=== PATIENT | female | born 1990 | race Caucasian/White ===

== ENCOUNTER → 2020-12-31 | Outpatient (CLI) | payer MEDICAID ==
[~2020-12-31] MED LIST: PNV1TABL76 MT
== END | disposition home or self-care (01) ==
LOC: EDBD → LAB 10:22
PROVIDERS: ATTEND Obstetrics & Gynecology
DX: Z01.812 Encounter for preprocedural laboratory examination (principal); Z20.822 Contact with and (suspected) exposure to COVID-19
CPT/HCPCS: 87426

== ENCOUNTER 2023-03-20 08:33 | Inpatient (IN) | payer MEDICAID ==
[~2023-03-20] VITALS: Ht 162.6 cm; Wt 72.6 kg
[~2023-03-20 08:33] MED LIST changes: +IBUP-2030 PO
[2023-03-20] MEDS ORDERED: METHYLERGONOVINE MALEATE 0.2 MG/ML IM PRN (10:15)
[2023-03-20] MEDS ORDERED: MISOPROSTOL 100MCG TABLET VG SCH (10:15)
[2023-03-20] MEDS ORDERED: NALOXONE HCL 0.4 MG/ML 1ML VIAL IM PRN (10:15)
[2023-03-20] MEDS ORDERED: LACTATED RINGERS 1,000 ML IV SCH (10:15)
[2023-03-20] MEDS ORDERED: OXYTOCIN 30 UNITS/500ML NS PMX 500 ML IV SCH (10:15)
[2023-03-20] MEDS ORDERED: CARBOPROST TROMETHAMINE 250 MCG/ML AMPUL IM PRN (10:15)
[2023-03-20 10:54] LABS: BASOPHILS % 0.1 % (0.0-2.0); HEMATOCRIT. 31.9 % (36.0-48.0); HEMOGLOBIN. 10.8 g/dL (12.0-16.0); LYMPHOCYTES % 20.1 % (20.0-50.0); MEAN CORPUSCULAR HEMOGLOBIN 29.7 pg (28.0-32.0); MEAN CORPUSCULAR VOLUME 87.5 fL (81.0-99.0); MEAN PLATELET VOLUME 8.5 fl (7.4-10.4); MONOCYTES % 6.3 % (2.0-8.0); NEUTROPHILS % 72.5 % (40.0-76.0); PLATELET 125 x1000/uL (130-400); RED BLOOD CELL COUNT 3.65 mill/uL (4.2-5.4); RED CELL DISTRIBUTION WIDTH 13.5 % (11.6-14.6)
[2023-03-20 11:06] LABS: INR 0.9; PARTIAL THROMBOPLASTIN TIME 27.3 sec (23.4-31.0); PROTHROMBIN TIME 9.9 sec (9.6-11.0)
[2023-03-20 11:07] LABS: CLARITY URINE CLEAR (CLEAR); COLOR URINE YELLOW (YELLOW); KETONES URINE NEGATIVE (NEGATIVE); LEUKOCYTE ESTERASE URINE NEGATIVE (NEGATIVE); NITRITE URINE NEGATIVE (NEGATIVE); OCCULT BLOOD URINE NEGATIVE (NEGATIVE); PROTEIN URINE NEGATIVE (NEGATIVE); UROBILINOGEN URINE 0.2 E.U./dL (0.2-1.0)
[2023-03-20 11:22] LABS: *AMPHETAMINES SCREEN URINE NEGATIVE (NEGATIVE); *BARBITURATES SCREEN URINE NEGATIVE (NEGATIVE); *BENZODIAZEPINES SCREEN URINE NEGATIVE (NEGATIVE); *COCAINE SCREEN URINE NEGATIVE (NEGATIVE); CANNABINOID URINE SCREEN NEGATIVE (NEGATIVE); METHADONE URINE SCREEN NEGATIVE (NEGATIVE); OPIATES URINE SCREEN NEGATIVE (NEGATIVE); PHENCYCLIDINE URINE SCREEN NEGATIVE (NEGATIVE)
[2023-03-20] MEDS ORDERED: ONDANSETRON HCL 4MG/2ML INJ ONE (11:49)
[2023-03-20] MEDS ORDERED: CEFAZOLIN SODIUM 1000MG/VIAL ONE (11:49)
[2023-03-20] MEDS ORDERED: EPHEDRINE SULFATE 50MG/ML VIAL ONE (11:49)
[2023-03-20] MEDS ORDERED: OXYTOCIN 10 UNITS/ML 1ML ONE (11:49)
[2023-03-20] MEDS ORDERED: FENTANYL CITRATE/PF 50MCG/ML 2ML VIAL ONE (11:50)
[2023-03-20] MEDS ORDERED: DIPHENHYDRAMINE 50MG/ML VIAL ONE (11:50)
[2023-03-20] MEDS ORDERED: MORPHINE SULFATE/PF 1MG/ML 10ML AMP ONE (11:50)
[2023-03-20] MEDS ORDERED: KETOROLAC 60MG/2ML VIAL IM ONE (16:44)
[2023-03-20] MEDS ORDERED: NALOXONE HCL 0.4 MG/ML 1ML VIAL IV PRN (17:00)
[2023-03-20] MEDS ORDERED: DIPHENHYDRAMINE 50MG/ML VIAL IV PRN (17:00)
[2023-03-20 22:30] VITALS: BP 99/58; PULSE 70; RESP 18; TEMP 98.7; O2SAT 97
[2023-03-20] MEDS: KETOROLAC 30MG/ML VIAL IV SCH (22:57)
[2023-03-21] MEDS ORDERED: ACETAMINOPHEN WITH CODEINE 300/30MG TABLET PO PRN
[2023-03-21] MEDS ORDERED: ONDANSETRON HCL 4MG/2ML INJ IV PRN
[2023-03-21] MEDS ORDERED: RHO(D) IMMUNE GLOBULIN 300 MCG/SYR IM PRN
[2023-03-21] MEDS ORDERED: DIPHENHYDRAMINE 25MG CAPSULE PO PRN
[2023-03-21] MEDS ORDERED: OXYTOCIN 30 UNITS/500ML NS PMX 500 ML IV SCH
[2023-03-21] MEDS ORDERED: IBUPROFEN 400MG TABLET PO PRN
[2023-03-21] MEDS ORDERED: HEMORRHOIDAL SUPP PR PRN
[2023-03-21] MEDS ORDERED: LANOLIN OINT 7GM TUBE TOP PRN
[2023-03-21 04:00] VITALS: BP 92/55; PULSE 67; RESP 18; TEMP 98.6
[2023-03-21] MEDS: KETOROLAC 30MG/ML VIAL IV SCH ×2 (04:39→11:50)
[2023-03-21] MEDS: MAGNESIUM/ALUMINUM HYDROXIDE/SIMETHICONE 30ML UDC PO SCH ×2 (07:30→17:30)
[2023-03-21 08:00] VITALS: BP 89/54; PULSE 72; RESP 18; TEMP 98.3; O2SAT 100
[2023-03-21] MEDS: SIMETHICONE 80MG TABLET CHEW PO SCH (08:00)
[2023-03-21] MEDS: PRENATAL VIT/FE FUMARATE/FA TABLET PO SCH ×2 (11:50→16:15)
[2023-03-21] MEDS ORDERED: KETOROLAC 30MG/ML VIAL IV NR (12:00)
[2023-03-21 16:00] VITALS: BP 95/62; PULSE 70; RESP 18; TEMP 97.8
[2023-03-21] MEDS: IBUPROFEN 800MG TABLET PO PRN ×2 (16:16→22:02)
[2023-03-21 20:00] VITALS: BP 93/53; PULSE 73; RESP 18; TEMP 97.8; O2SAT 97
[2023-03-21] MEDS: DOCUSATE SODIUM 100MG CAPSULE PO SCH (22:02)
[2023-03-22] MEDS: IBUPROFEN 800MG TABLET PO PRN ×4 (03:55→22:33)
[2023-03-22 04:00] VITALS: BP 104/70; PULSE 75; RESP 18; TEMP 98.4
[2023-03-22 06:40] LABS: BASOPHILS % 0.2 % (0.0-2.0); EOSINOPHILS % 1.5 % (0.0-5.0); HEMATOCRIT. 25.1 % (36.0-48.0); HEMOGLOBIN. 8.5 g/dL (12.0-16.0); LYMPHOCYTES % 17.2 % (20.0-50.0); MEAN CORPUSCULAR HEMOGLOBIN 29.6 pg (28.0-32.0); MEAN CORPUSCULAR VOLUME 87.9 fL (81.0-99.0); MEAN PLATELET VOLUME 8.3 fl (7.4-10.4); MONOCYTES % 5.1 % (2.0-8.0); PLATELET 125 x1000/uL (130-400); RED BLOOD CELL COUNT 2.86 mill/uL (4.2-5.4); RED CELL DISTRIBUTION WIDTH 13.7 % (11.6-14.6)
[2023-03-22] MEDS: PRENATAL VIT/FE FUMARATE/FA TABLET PO SCH (09:28)
[2023-03-22] MEDS: FERROUS SULFATE 325MG TABLET PO SCH ×3 (09:29→17:41)
[2023-03-22] MEDS: SIMETHICONE 80MG TABLET CHEW PO SCH ×3 (09:29→20:26)
[2023-03-22] MEDS: MAGNESIUM/ALUMINUM HYDROXIDE/SIMETHICONE 30ML UDC PO SCH ×2 (09:29→20:26)
[2023-03-22 10:00] VITALS: BP 101/44; PULSE 64; RESP 18; TEMP 98.3; O2SAT 97
[2023-03-22 16:45] VITALS: BP 102/62; PULSE 71; RESP 18; TEMP 98.2
[2023-03-22] MEDS ORDERED: NALOXONE HCL 0.4MG/ML VIAL IV PRN (17:00)
[2023-03-22 20:00] VITALS: BP 106/65; PULSE 78; RESP 18; TEMP 98.7; O2SAT 97
[2023-03-22] MEDS: DOCUSATE SODIUM 100MG CAPSULE PO SCH (20:26)
[2023-03-22 21:54] LABS: HEPATITIS B SURFACE ANTIGEN NEGATIVE
[2023-03-23 04:00] VITALS: BP 105/66; PULSE 75; RESP 18; TEMP 98.2
[2023-03-23] MEDS ORDERED: IBUP-2030 PO (05:15)
[2023-03-23 08:00] VITALS: O2SAT 97
[2023-03-23] MEDS ORDERED: BISACODYL 10MG SUPP PR PRN (08:45)
[2023-03-23 09:04] VITALS: BP 105/66; PULSE 75; RESP 18
[2023-03-23] MEDS: FERROUS SULFATE 325MG TABLET PO SCH (09:04)
[2023-03-23] MEDS: IBUPROFEN 800MG TABLET PO PRN (09:04)
[2023-03-23] MEDS: SIMETHICONE 80MG TABLET CHEW PO SCH (09:14)
[2023-03-23] MEDS: MAGNESIUM/ALUMINUM HYDROXIDE/SIMETHICONE 30ML UDC PO SCH (09:15)
== END 2023-03-23 13:10 | disposition home or self-care (01) | DRG 540 ==
LOC: 8EST 08:33 → OBSVTOIN 08:33 → 8EST NSY 09:20 → 8 EST LDRP 09:48 → 8EST 22:23
PROVIDERS: ADMIT Obstetrics & Gynecology; ATTEND Obstetrics & Gynecology
PROC: 10D00Z1 Extraction of Products of Conception, Low, Open Approach (ICD-10-PCS; principal; 2023-03-20)
DX: O34.211 Maternal care for low transverse scar from previous cesarean delivery (principal); Z37.0 Single live birth; Z3A.39 39 weeks gestation of pregnancy
CPT/HCPCS: 36415; 80305; 81003; 85025; 86592; 86703; 86762; 86850; 86900; 87340; 88307; J0690; J1200; J1885; J2274; J2405; J3010; J3490; A4315; J2590